=== PATIENT | female | born 1970 | race Caucasian/White ===

== ENCOUNTER 2017-07-19 19:37 | Emergency (ER) | payer MEDICAID ==
--- NOTE | 2017-07-19 20:21 | ER Document Report ---
HPI - HPI Pain Level: Denies Notes: Patient is a 47-year-old female with a history of hypertension who presents to the ED requesting medication refills of her blood pressure medication, cholesterol medication, and Plavix as she has been out for the last 2 weeks. Patient states that she has moved to the area somewhat recently, and has not yet established with a primary care provider. Patient states that she is going to do that this week. She has no new concerns or complaints. Patient states that she is otherwise eating and drinking without difficulties. She is urinating normally and having normal bowel movements. No other changes in her vision. She has not had any lower extremity edema. Denies any headache, fever , head injury, neck pain, URI, sore throat, chest pain, palpitations, syncope, cough, shortness of breath, wheeze, dyspnea, abdominal pain, nausea/vomiting/ diarrhea, urinary retention, dysuria, hematuria, or rash. - ROS Systems Reviewed and Negative: Yes All other systems reviewed and negative - CONSTITUTIONAL Constitutional: DENIES: Fever, Chills - EENT EENT: DENIES: Sore Throat, Ear Pain, Eye problems - REPRODUCTIVE LMP: na Past Medical History - Social History Smoking Status: Current Every Day Smoker Chew tobacco use (# tins/day): No Frequency of alcohol use: Occasional Drug Abuse: None Family History: Reviewed & Not Pertinent Patient has suicidal ideation: No Patient has homicidal ideation: No - Past Medical History Cardiac Medical History: Reports: Hx Hypertension Renal/ Medical History: Denies: Hx Peritoneal Dialysis Vertical Provider Document - CONSTITUTIONAL Agree With Documented VS: Yes Notes: PHYSICAL EXAMINATION: GENERAL: Well-appearing, well-nourished and in no acute distress. Answers questions appropriately. HEAD: Atraumatic, normocephalic. EYES: Pupils equal round and reactive to light, extraocular movements intact, sclera anicteric, conjunctiva are normal. LUNGS: Breath sounds clear to auscultation bilaterally and equal. No wheezes rales or rhonchi. HEART: Regular rate and rhythm without murmurs, rubs, gallops. Extremities: No cyanosis, clubbing, or edema b/l. Peripheral pulses 2+. Capillary refill less than 3 seconds. NEUROLOGICAL: Normal speech, normal gait. Normal sensory, motor exams PSYCH: Normal mood, normal affect. SKIN: Warm, Dry, normal turgor, no rashes or lesions noted. - INFECTION CONTROL TRAVEL OUTSIDE OF THE [place] IN LAST 30 DAYS: No Course - Re-evaluation Re-evalutation: 07/19/17 20:26 Patient is an afebrile, well-hydrated, 47-year-old female who presents to the ED with hypertension. Vitals are acceptable. PE is otherwise unremarkable. No labs or imaging warranted at this time based on H&P as patient is otherwise asymptomatic. Patient requesting medications of amlodipine, metoprolol, atorvastatin, Plavix, and enalapril. Conservative measures otherwise for symptoms with close monitoring. Recheck/establish with PCM this week. Consider consult with a admitting manager as well. Return to the ED with any worsening/concerning symptoms otherwise as reviewed discharge. Patient is in agreement. Medications refilled. - Vital Signs Vital signs: Temp Pulse Resp BP Pulse Ox 98.1 F 77 16 178/100 H 98 07/19/17 20:02 07/19/17 20:02 07/19/17 20:02 07/19/17 20:02 07/19/17 20:02 Discharge - Discharge Clinical Impression: Hypertension Qualifiers: Hypertension type: unspecified Qualified Code(s): I10 - Essential (primary) hypertension Condition: Stable Disposition: HOME, SELF-CARE Instructions: High Blood Pressure ([facility]) Additional Instructions: Maintain adequate fluid and food intake Take home medications as directed Low sodium/fat diet Exercise regularly Weight control Monitor blood pressure daily and keep a log Monitor symptoms for any acute changes Recheck with your PCM in 3-5 days Consider a follow-up with cardiology Return to the ED with any worsening symptoms and/or development of fever, headache, chest pain, palpitations, syncope, shortness of breath, trouble breathing, abdominal pain, n/v/d, blood in stool/urine, loss of control of bowel /bladder, urinary retention, muscle weakness/paralysis, numbness/tingling, or other worsening symptoms that are concerning to you. Prescriptions: Amlodipine Besylate 10 mg PO DAILY #30 tab Atorvastatin Calcium 80 mg PO DAILY #30 tablet Clopidogrel Bisulfate [Clopidogrel] 75 mg PO DAILY #30 tablet Enalapril Maleate [Vasotec 5 mg Tablet] 5 mg PO DAILY #30 tablet Metoprolol Succinate 50 mg PO DAILY #30 tab.er.24h Forms: Elevated Blood Pressure Referrals: SOHAIL GHOTRA MD [ACTIVE STAFF] - Follow up as needed [facility] [Provider Group] - Follow up as needed
[2017-07-19 20:38] VITALS: BP 146/93
== END 2017-07-19 20:38 | disposition home or self-care (01) ==
LOC: ER 19:37
DX: I10 Essential (primary) hypertension (principal); F17.200 Nicotine dependence, unspecified, uncomplicated; E78.00 Pure hypercholesterolemia, unspecified; Z79.02 Long term (current) use of antithrombotics/antiplatelets
CPT/HCPCS: 99281